=== PATIENT | female | born 1955 ===

== ENCOUNTER → 2024-04-08 | Outpatient (CLI) | payer MEDICARE, OTHER ==
[~2024-04-08] VITALS: Ht 165.1 cm; Wt 62.0 kg
[~2024-04-08] MED LIST: ALBU18HF12 IH; FLUT1BLS3 IH; SIMV-260 PO; TRAZ-252 PO
[2024-04-08 10:38] VITALS: BP 151/77; PULSE 54; RESP 16; TEMP 98.3; O2SAT 98
== END | disposition home or self-care (01) ==
LOC: SRCNTR 10:19
PROVIDERS: ATTEND Internal Medicine
DX: J45.901 Unspecified asthma with (acute) exacerbation (principal); K21.9 Gastro-esophageal reflux disease without esophagitis; D72.10 Eosinophilia, unspecified; R91.8 Other nonspecific abnormal finding of lung field; Z79.899 Other long term (current) drug therapy
CPT/HCPCS: G0463; Z7500